=== PATIENT | female | born 1965 | race Caucasian/White ===

== ENCOUNTER → 2016-12-27 | Outpatient (CLI) | payer OTHER ==
[~2016-12-27] MED LIST: DULO20CA PO; GABA-585 PO; LISI-334 PO; METF-620 PO
--- NOTE | 2016-12-27 10:55 | KCIC ---
MR of the left knee Indication: Medial and lateral pain for one year. Technique: The standard multiplanar sequences are obtained. Findings: Mild/moderate motion degradation. Medial meniscus: Degenerative tear at the posterior horn. Lateral meniscus: Intact. Anterior cruciate ligament: Intact Posterior cruciate ligament: Intact Medial collateral ligament: Intact. Iliotibial band: Intact. Posterolateral structures: Fibular collateral ligament, biceps tendon and popliteus tendon are intact. Extensor mechanism: Intact. Fluid: Moderate joint effusion. Articular cartilage -patellofemoral joint: Mild to moderate chondromalacia of the patella. -medial compartment: Severe chondromalacia. -lateral compartment: Mild to moderate chondromalacia, greatest at the posterior lateral tibial plateau. Bones: No significant lesion or acute fracture. Soft tissue: Small Chaidez's cyst. Impression: 1. Medial meniscal tear. 2. Primary osteoarthritis. Electronically signed by: Missael Sims MD (12/27/2016 10:52 AM) [facility]
== END | disposition home or self-care (01) ==
LOC: KCIC MRI 07:42
PROVIDERS: ATTEND Orthopaedic Surgery
DX: S83.242A Other tear of medial meniscus, current injury, left knee, initial encounter (principal); M22.42 Chondromalacia patellae, left knee; M17.12 Unilateral primary osteoarthritis, left knee; X58.XXXA Exposure to other specified factors, initial encounter; Y93.89 Activity, other specified; Y92.89 Other specified places as the place of occurrence of the external cause; Y99.8 Other external cause status
CPT/HCPCS: 73721

== ENCOUNTER 2017-01-28 14:55 | Emergency (ER) | payer OTHER ==
[~2017-01-28] VITALS: Ht 162.6 cm; Wt 104.3 kg
[2017-01-28 16:01] VITALS: BP 163/92
[2017-01-28] MEDS ORDERED: KETOROLAC 60 MG/2 ML INJ. IM ONE (16:30)
--- NOTE | 2017-01-28 16:42 | PHYS DOC ---
Past Medical History Past Medical History: Arthritis, Diabetes-Type II, Hypertension Past Surgical History: Cholecystectomy, Knee Replacement, Other Additional Past Surgical Histo: LEFT KNEE ARTHROSCOPY 01/28 Alcohol Use: None Drug Use: None Adult General Chief Complaint Chief Complaint: LOWER BACK PAIN OR INJURY [facility] HPI Patient is a 52 year old female with history of arthritis, hypertension, diabetes type 2, who presents today complaining of moderate left low back pain radiating to the left lower extremity that began 5 days ago. Patient states she also had left knee arthroscopy 5 days ago. Patient denies any trauma. Denies any loss of bowel bladder function, denies any generalized weakness. She states she has been taking cyclobenzaprine and hydrocodone with no relief. She is interested in getting MRI of her lumbar spine, she states the last time they did an MRI of her lumbar spine she was noted to have a cyst on her right low back. She is also interested in admission for pain management. Review of Systems Review of Systems Constitutional: Denies fever or chills [] Eyes: Denies change in visual acuity, redness, or eye pain [] HENT: Denies nasal congestion or sore throat [] Respiratory: Denies cough or shortness of breath [] Cardiovascular: No additional information not addressed in HPI [] GI: Denies abdominal pain, nausea, vomiting, bloody stools or diarrhea [] : Denies dysuria or hematuria [] Musculoskeletal: Left low back pain radiating into the left lower extremity. Integument: Denies rash or skin lesions [] Neurologic: Denies headache, focal weakness or sensory changes [] All other systems were reviewed and found to be within normal limits, except as documented in this note. Current Medications Current Medications Current Medications Medications (Trade) Dose Ordered Sig/[facility] Start Time Stop Time Status Last Admin Dose Admin Ketorolac Tromethamine (Toradol Im) 60 mg 1X ONCE 01/28/17 16:30 01/28/17 16:32 DC 01/28/17 16:57 60 MG Allergies Allergies Allergies Coded Allergies Type Severity Reaction Last Updated Verified No Known Drug Allergies 05/04/14 No Physical Exam Physical Exam Constitutional: Well developed, well nourished, no acute distress, non-toxic appearance. [] HENT: Normocephalic, atraumatic, bilateral external ears normal, oropharynx moist, no oral exudates, nose normal. [] Eyes: PERRLA, EOMI, conjunctiva normal, no discharge. [] Neck: Normal range of motion, no tenderness, supple, no stridor. [] Cardiovascular:Heart rate regular rhythm, no murmur [] Lungs & Thorax: Bilateral breath sounds clear to auscultation [] Abdomen: Bowel sounds normal, soft, no tenderness, no masses, no pulsatile masses. [] Skin: Warm, dry, no erythema, no rash. [] Back: Mild tenderness to the left SI joint, no midline lumbar spine tenderness, no CVA tenderness. [] Extremities: No tenderness, no cyanosis, no clubbing, ROM intact, no edema. [] Neurologic: Alert and oriented X 3, normal motor function, normal sensory function, no focal deficits noted. [] Psychologic: Affect normal, judgement normal, mood normal. [] Current Patient Data Vital Signs Vital Signs Date Time Temp Pulse Resp B/P (MAP) Pulse Ox O2 Delivery O2 Flow Rate FiO2 01/28/17 16:01 98.0 90 18 99 Room Air 98.0 EKG EKG [] Radiology/Procedures Radiology/Procedures [] Course & Med Decision Making Course & Med Decision Making Pertinent Labs and Imaging studies reviewed. (See chart for details) Patient is in the ED with left low back pain radiating to the left lower extremity with no known injury, cauda equina syndrome symptoms. She had left knee arthroscopy five days ago. She is interested in admission as well as MRI of the lumbar spine. Informed patient there is no indication for her to have an MRI in the ED today. Recommended following up with the PCP as an outpatient MRI. Recommended pain management in the ED. Patient continues to request admission 16:[address] Isabela Orr environmental inspector for patient's PCP Dr. Georges. She requested we discharge patient and she can follow-up with the clinic tomorrow. Patient was given Toradol in the ED. Lumbar spine x-rays interpreted by Dr. Gandhi were noted for vertebral compression fracture of unknown etiology otherwise no acute findings. She was discharged with instructions to contact Dr. Kadie georges tomorrow morning and set up a follow-up appointment. She is provided return precautions and discharged in stable condition. Dragon Disclaimer Dragon Disclaimer This electronic medical record was generated, in whole or in part, using a voice recognition dictation system. Departure Departure Impression: Primary Impression: Low back pain Additional Impression: Sciatica of left side Disposition: HOME, SELF-CARE Condition: STABLE Referrals: KADIE LAKE MD (PCP) follow up by calling her office tomorrow Patient Instructions: Back Pain, Adult, Sciatica with Rehab-SportsMed Additional Instructions: You were seen for low back pain with sciatica. We highly recommend you contact Dr. Georges tomorrow morning and set up a follow-up appointment. Take the prescribed medications as ordered. Do not drive on the [place] or Valium. Scripts Diclofenac Sodium (DICLOFENAC SODIUM) 50 Mg Tablet. 1 TAB PO BID, #20 TAB 0 Refills Prov: DEMARCUS JENKINS APRN 01/28/17 Diazepam (VALIUM) 5 Mg Tablet 5 MG PO TID, #15 TAB Prov: DEMARCUS JENKINS APRN 01/28/17 Hydrocodone Bit/Acetaminophen (HYDROCODONE-APAP 7.5-325 ) 1 Each Tablet 1-2 TAB PO PRN Q6HRS Y for PAIN, #14 TAB 0 Refills Prov: DEMARCUS JENKINS APRN 01/28/17 Problem Qualifiers Primary Impression: Low back pain Chronicity: acute Back pain laterality: left Sciatica presence: with sciatica Sciatica laterality: sciatica of left side Qualified Codes: M54.42 - Lumbago with sciatica, left side DEMARCUS JENKINS APRN Jan 28, 2017 16:42
[2017-01-28] MEDS ORDERED: DIAZ5TAB PO (17:18)
[2017-01-28] MEDS ORDERED: DICL50TA4 PO (17:18)
[2017-01-28] MEDS ORDERED: HYDR-2762 PO (17:18)
--- NOTE | 2017-01-28 17:22 | RAD ---
3 views lumbar spine radiograph 01/28/2017 Clinical indication: Low back pain. Comparison: MRI lumbar spine 01/18/2016. Findings: There is transitional vertebral anatomy with 6 lumbar type vertebral bodies. There is grade 1 anterolisthesis L5 on L6 measuring 7 mm. No evidence of acute lumbar spine fracture. There is mild leftward curvature of the lumbar spine. Vertebral body heights are maintained. There is mild multilevel disc degeneration of the visualized lower thoracic and lumbar spine with mild anterior ossified formation of the lower thoracic and upper lumbar spine. There is mild lower lumbar facet hypertrophy. Impression: 1. No evidence of acute lumbar spine fracture. 2. Transitional vertebral anatomy with grade 1 anterolisthesis L5 on L6. 3. Multilevel mild lumbar spondylosis.
[2017-01-28] MEDS ORDERED: HYDROcodone/APAP 5/325MG 1 TAB TABLET PO ONE (17:45)
== END 2017-01-28 17:39 | disposition home or self-care (01) ==
LOC: ER 14:55
DX: M54.42 Lumbago with sciatica, left side (principal); M19.90 Unspecified osteoarthritis, unspecified site; E11.9 Type 2 diabetes mellitus without complications; I10 Essential (primary) hypertension; Z90.49 Acquired absence of other specified parts of digestive tract; Z96.659 Presence of unspecified artificial knee joint
CPT/HCPCS: 72100; 96372; 99284; J1885

== ENCOUNTER → 2017-06-13 | Outpatient (CLI) | payer OTHER | END | disposition home or self-care (01) | LOC: KCIC MRI 08:27 | DX: M43.16 Spondylolisthesis, lumbar region (principal); M51.16 Intervertebral disc disorders with radiculopathy, lumbar region; M48.07 Spinal stenosis, lumbosacral region; D18.09 Hemangioma of other sites; I10 Essential (primary) hypertension; E11.9 Type 2 diabetes mellitus without complications | CPT/HCPCS: 72148 ==

== ENCOUNTER → 2017-07-06 | Outpatient (CLI) | payer OTHER ==
[~2017-07-06] MED LIST changes: -DULO20CA PO; -GABA-585 PO; +IOHEXOL 180 MG/ML 10 ML VIAL.; +LIDOCAINE 1% PF 2 ML VIAL.; -LISI-334 PO; -METF-620 PO; +methylPREDNISolone ACETATE 40 MG/ML VIAL.; +methylPREDNISolone ACETATE 80 MG/ML VIAL.
== END | disposition home or self-care (01) ==
LOC: PNCL 08:18
DX: M51.16 Intervertebral disc disorders with radiculopathy, lumbar region (principal); M48.061 Spinal stenosis, lumbar region without neurogenic claudication; I10 Essential (primary) hypertension; E11.9 Type 2 diabetes mellitus without complications; M19.90 Unspecified osteoarthritis, unspecified site; Z90.49 Acquired absence of other specified parts of digestive tract; Z96.651 Presence of right artificial knee joint; Z79.4 Long term (current) use of insulin; Z79.899 Other long term (current) drug therapy
CPT/HCPCS: 62323; J1030; J1040; Q9965

== ENCOUNTER → 2017-07-26 | Outpatient (CLI) | payer OTHER | END | disposition home or self-care (01) | LOC: PNCL 08:05 | DX: M51.16 Intervertebral disc disorders with radiculopathy, lumbar region (principal); M48.061 Spinal stenosis, lumbar region without neurogenic claudication | CPT/HCPCS: 62323; J1030; J1040; Q9965 ==

== ENCOUNTER → 2017-08-29 | Outpatient (CLI) | payer OTHER | END | disposition home or self-care (01) | LOC: KCIC 08:15 | DX: M43.16 Spondylolisthesis, lumbar region (principal); M47.896 Other spondylosis, lumbar region | CPT/HCPCS: 72100 ==

== ENCOUNTER → 2017-09-17 | Outpatient (CLI) | payer OTHER ==
[2017-09-17 15:46] LABS: ADD MAN DIFF? NO
[2017-09-17 15:50] LABS: BASO # 0.1 x10^3/uL (0.0-0.2); BASO % 1 % (0-3); EOS # 0.1 x10^3/uL (0.0-0.7); EOS % 2 % (0-3); HEMATOCRIT 41.5 % (36.0-47.0); HEMOGLOBIN 13.6 g/dL (12.0-15.5); LYMPH # 2.5 x10^3/uL (1.0-4.8); LYMPH % 30 % (24-48); MEAN CORPUSCULAR HEMOGLOBIN 28 pg (25-35); MEAN CORPUSCULAR HGB CONC 33 g/dL (31-37); MEAN CORPUSCULAR VOLUME 86 fL (79-100); MONO # 0.5 x10^3/uL (0.0-1.1); MONO % 7 % (0-9); NEUT # 4.8 x10^3uL (1.8-7.7); NEUT % 60 % (31-73); PLATELET COUNT 333 x10^3/uL (140-400); RED BLOOD COUNT 4.82 x10^6/uL (3.50-5.40); RED CELL DISTRIBUTION WIDTH 14.4 % (11.5-14.5); WHITE BLOOD COUNT 8.1 x10^3/uL (4.0-11.0)
[2017-09-17 15:57] LABS: PARTIAL THROMBOPLASTIN TIME 25 SEC (24-38); PROTHROMBIN TIME PATIENT 12.5 SEC (11.7-14.0)
[2017-09-17 16:11] LABS: ALBUMIN 3.2 g/dL (3.4-5.0); ALBUMIN/GLOBULIN RATIO 0.8 (1.0-1.7); ALK PHOS 100 U/L (46-116); ALT (SGPT) 28 U/L (14-59); ANION GAP 7 (6-14); AST (SGOT) 23 U/L (15-37); BLOOD UREA NITROGEN 15 mg/dL (7-20); BUN/CREATININE RATIO 14 (6-20); CALCIUM 8.2 mg/dL (8.5-10.1); CARBON DIOXIDE 30 mmol/L (21-32); CHLORIDE 100 mmol/L (98-107); CREATININE 1.1 mg/dL (0.6-1.0); GFR 52.2; GLUCOSE 317 mg/dL (70-99); POTASSIUM 3.9 mmol/L (3.5-5.1); SODIUM 137 mmol/L (136-145); TOTAL BILIRUBIN 0.4 mg/dL (0.2-1.0)
[2017-09-18 00:15] LABS: MRSA BY PCR Negative (Negative)
[2017-09-18 17:15] LABS: HEMOGLOBIN A1C 11.8 % (4.8-5.6)
== END | disposition home or self-care (01) ==
LOC: SURGPAT 12:55
DX: I10 Essential (primary) hypertension (principal); E11.9 Type 2 diabetes mellitus without complications; Z90.49 Acquired absence of other specified parts of digestive tract
CPT/HCPCS: 36415; 80053; 83036; 85025; 85610; 85730; 87641; 93005

== ENCOUNTER → 2018-03-21 | Outpatient (CLI) | payer OTHER ==
[~2018-03-21] MED LIST changes: +ATOR10TA60 PO; +BARIUM SULFATE 340 GM SUSPENSION. PO ONE; +BARIUM SULFATE 60% 355 ML SUSP PO ONE; +DIAZ5TAB PO; +DICL50TA4 PO; +DULO20CA PO; +GABA-585 PO; +GABA300C18 PO; +GABA600T7 PO; +HYDR-2765 PO; +IBUP-1007 PO; +INSU100I13 SQ; -IOHEXOL 180 MG/ML 10 ML VIAL.; -LIDOCAINE 1% PF 2 ML VIAL.; +LISI-334 PO; +METF10007 PO; +PIOG45TA40 PO; +SIMETHICONE/SOD BICARB/CITRIC ACID PACKET. PO ONE; -methylPREDNISolone ACETATE 40 MG/ML VIAL.; -methylPREDNISolone ACETATE 80 MG/ML VIAL.
--- NOTE | 2018-03-21 10:06 | RAD ---
Examination: ESOPHAGRAM/BARIUM SWALLOW History: dysphagia, gagging on liquids and solids, food gets stuck, 11 images, 1.6 minutes fluoro time Comparison/Correlation: None Findings: Air-contrast and single-contrast esophagram exam was performed. Fluoroscopy was utilized for 1.6 minutes. Pharyngeal motility is normal. Subtle mass effect along the posterior aspect of the cervical esophagus at the C4-5 level is present. This is at the level of the screws associated with C5-6 effusion. Intervertebral disc spacer material at this level also seen. Degenerative disc space narrowing of the cervical spine multiple levels seen. Posterior element rods and screws also seen involving the lower cervical spine. Normal distention of the esophagus is present. Occasional mild tertiary contractions at the proximal thoracic esophageal level noted. No suspicious filling defects. No definite diverticulitis. Upon Valsalva drinking views, there is no hiatal hernia identified. No reflux seen. Impression: Subtle mass effect upon the cervical esophagus at the C5-6 level at the level of cervical spine fusion. Findings may relate to presence of hardware at this site. Possibly of cricopharyngeal hypertrophy is not entirely excluded. Electronically signed by: Glen Crockett MD (03/21/2018 10:01 AM) [facility]
== END | disposition home or self-care (01) ==
LOC: RAD 08:30
PROVIDERS: ATTEND Internal Medicine Gastroenterology
DX: R13.10 Dysphagia, unspecified (principal); I10 Essential (primary) hypertension; E11.9 Type 2 diabetes mellitus without complications
CPT/HCPCS: 74220

== ENCOUNTER → 2018-03-27 | Outpatient (CLI) | payer OTHER ==
[~2018-03-27] MED LIST changes: -BARIUM SULFATE 340 GM SUSPENSION. PO ONE; -BARIUM SULFATE 60% 355 ML SUSP PO ONE; -SIMETHICONE/SOD BICARB/CITRIC ACID PACKET. PO ONE
--- NOTE | 2018-03-27 12:29 | KCIC ---
EXAM: Cervical spine MRI without contrast. HISTORY: Degenerative disc disease. Left neck pain. Neck fusion. TECHNIQUE: Multiplanar, multisequence magnetic resonance imaging of the cervical spine was performed without contrast. COMPARISON: None. FINDINGS: There is instrumented anterior spinal fusion at C5-C6 and interbody fusion at C5-C6 and C6-C7. There is instrumented posterior spinal fusion at C5-C7. There is kyphosis centered at the fused levels. There is minimal anterolisthesis of C7 on T1. There is degenerative endplate remodeling and osteophytosis at the majority of the cervical an upper thoracic levels. There are few small endplate Schmorl's nodes. There is deformation of the cervical spinal cord at multiple levels. There is a tiny focus of T2 hyperintensity within the left aspect of the cervical spinal cord at the inferior aspect of C6, likely due to myelomalacia. There is a minimally prominent central canal at C7-T1. No significant syringohydromyelia is seen. The posterior fossa is unremarkable. At C2-C3, there is a disc bulge and endplate remodeling. There is mild bilateral facet arthropathy. There is no stenosis. At C3-C4, there is a disc bulge and endplate remodeling. There is moderate right and mild left facet arthropathy. There is minimal central canal stenosis. At C4-C5, there is a posterior central to left paracentral disc protrusion and annular tear superimposed on a disc bulge and endplate osteophytosis. There is moderate facet arthropathy. There is uncovertebral arthropathy. There is mild left foraminal stenosis. There is deformation of the spinal cord and moderate central canal stenosis measuring 7.6 mm in anterior posterior dimension. At C5-C6, there is instrumented fusion. There is a prominent posterior central bridging osteophyte superimposed on endplate remodeling. There is uncovertebral therapy. There is mild/moderate left foraminal stenosis. There is deformation of the ventral aspect of the spinal cord. There is laminectomy decompression of the thecal sac. There is a 4 mm focus of T2 hyperintensity within the left aspect of the cervical spinal cord at this level likely due to myelomalacia. This is only seen on axial images. At C6-C7, there is a disc bulge and endplate remodeling. There is nonspecific fluid within the disc space. There is mild facet arthropathy. There is uncovertebral therapy. There is no stenosis. There are disc bulges and protrusions at the upper thoracic vertebral levels. The combination of this finding and facet arthropathy contributes to mild bilateral foraminal stenosis at multiple levels. IMPRESSION: 1. Multilevel degenerative change throughout the cervical an upper thoracic spine, described in detail above. This results in stenosis as before mentioned levels. 2. Tiny focus of T2 hyperintensity within the left aspect of the cervical spinal cord at C6, likely due to myelomalacia. There is also a minimally prominent central canal at C7, without convincing syringohydromyelia. 3. Instrumented anterior spinal fusion at C5-C6 and posterior fusion at C5-C7. There is laminectomy decompression of the thecal sac at the fused levels. 4. Cervical kyphosis and slight listhesis, described above. Electronically signed by: Mayela Ballesteros MD (03/27/2018 12:26 PM) [id number]
== END | disposition home or self-care (01) ==
LOC: KCIC MRI 09:30
PROVIDERS: ATTEND Family Medicine
DX: M47.892 Other spondylosis, cervical region (principal); M47.894 Other spondylosis, thoracic region; M48.02 Spinal stenosis, cervical region; M40.292 Other kyphosis, cervical region; M43.12 Spondylolisthesis, cervical region; M43.22 Fusion of spine, cervical region; M12.88 Other specific arthropathies, not elsewhere classified, other specified site; M25.78 Osteophyte, vertebrae
CPT/HCPCS: 72141

== ENCOUNTER → 2019-10-01 | Outpatient (CLI) | payer MEDICARE, OTHER ==
[~2019-10-01] MED LIST changes: +CONTRAST GIVEN. MC PRN; +IOHEXOL 240 MG/ML 50ML VIAL. PO ONE; +IOHEXOL 300 MG/ML 100ML VIAL. IV ONE
--- NOTE | 2019-10-01 16:58 | KCIC ---
Bilateral digital screening mammograms: Reason for examination: Routine screening. Comparison is made to previous study dated 05/04/2014. Interpretation is made with the benefit of CAD. The skin and nipples show no abnormalities. No abnormal lymph nodes are seen. The breast parenchyma is predominantly fatty. (Breast density: Category A.) There are no dominant masses, suspicious calcifications or architectural distortions. Impression: No evidence of malignancy. Recommend routine screening. BI-RADS Category 1: Negative. "Our facility is accredited by the [employer] Mammography Program." This patient's information has been entered into a reminder system for the patient to be notified with the results of her examination and a target date for the next mammogram. Electronically signed by: Karyn Moreira MD (10/01/2019 4:53 PM) [id number]
--- NOTE | 2019-10-02 10:38 | KCIC ---
EXAM: CT ABDOMEN/PELVIS WITH CONTRAST. HISTORY: Right lower quadrant pain. TECHNIQUE: Computed tomography of the abdomen and pelvis was performed after the intravenous administration of iodinated contrast. One or more of the following individualized dose reduction techniques were utilized for this examination: 1. Automated exposure control. 2. Adjustment of the mA and/or kV according to patient size. 3. Use of iterative reconstruction technique. COMPARISON: None. FINDINGS: Lung windows through the visualized portions of the bases reveal mild atelectasis. Bone windows reveal no suspicious lesions. There is grade 1 anterolisthesis at L4-5. There is moderate to severe central canal stenosis at this level. The gallbladder is surgically absent. At least mild diffuse hepatic steatosis is suspected. There are calcified granulomas in the spleen. The pancreas, adrenal glands and kidneys are unremarkable. There are no renal or ureteral calculi. Sigmoid diverticulosis is mild. The appendix is not inflamed. There is no small bowel obstruction. There are changes of pelvic floor relaxation with a small cystocele. IMPRESSION: 1. Normal appendix. No acute intra-abdominal findings. 2. Pelvic floor relaxation with a small cystocele. 3. Suspect mild diffuse hepatic steatosis. Electronically signed by: Arturo Tavares MD (10/02/2019 10:35 AM) [id number]
== END | disposition home or self-care (01) ==
LOC: KCIC MAMMO 13:11
PROVIDERS: ATTEND Family Medicine
DX: Z12.31 Encounter for screening mammogram for malignant neoplasm of breast (principal); J98.11 Atelectasis; M48.061 Spinal stenosis, lumbar region without neurogenic claudication; M43.16 Spondylolisthesis, lumbar region; K57.30 Diverticulosis of large intestine without perforation or abscess without bleeding; K76.0 Fatty (change of) liver, not elsewhere classified; Z90.49 Acquired absence of other specified parts of digestive tract
CPT/HCPCS: 74177; 77067; 82565; Q9966; Q9967

== ENCOUNTER → 2020-05-03 | Outpatient (CLI) | payer MEDICARE ==
[~2020-05-03] MED LIST changes: -CONTRAST GIVEN. MC PRN; -IOHEXOL 240 MG/ML 50ML VIAL. PO ONE; -IOHEXOL 300 MG/ML 100ML VIAL. IV ONE; -LISI-334 PO; +LISI20TA18 PO
--- NOTE | 2020-05-03 18:10 | KCIC ---
MRI study of the left shoulder without contrast Clinical indications: Left shoulder pain. Patient fell 3 weeks ago. Limited range of motion. TECHNIQUE: Noncontrast MRI sequences of the left shoulder were performed in all 3 planes. FINDINGS: Patient motion artifact is seen. There is paramagnetic susceptibility artifact of the proxi mal right humerus with surgical tracks consistent with previous surgery. There is a complete tear of the medial and lateral aspects of the supraspinatus tendon of the rotator cuff. There is a tear at th e insertion onto the greater tubercle as well. Subscapularis tendon appears intact. The intra-articul ar portion of the tendon of the long head of the biceps is not visualized. It appears intact within t he bicipital groove. No muscle atrophy is seen. There is moderate degenerative osteoarthritis of the AC joint. A type III acromial process is seen. These findings may impinge the acromial humeral space. There are chronic erosive changes of the lateral aspect of the humeral head secondary to chronic imp ingement. Small amount of fluid is seen within the subacromial bursa as a result of the complete tear . No marrow infiltrative process or fracture is seen. There is moderate degenerative osteoarthritis o f the glenohumeral joint with a small glenohumeral joint effusion. No loose body is evident. There is increased signal and irregularity of the posterior superior aspect of the glenoid labrum which may r epresent a degenerative tear. IMPRESSION: Complete tear of the supraspinatus tendon portion of the rotator cuff. Impingement of the acromial humeral space. Primary degenerative osteoarthritis of the right AC joint and glenohumeral joint. Degenerative tear of the posterior superior aspect of the glenoid labrum. Electronically signed by: Cristino Vu MD (05/03/2020 6:07 PM) [place] [id number]
== END ==
LOC: KCIC MRI 12:31
PROVIDERS: ATTEND Family Medicine
DX: M75.102 Unspecified rotator cuff tear or rupture of left shoulder, not specified as traumatic (principal); M19.011 Primary osteoarthritis, right shoulder
CPT/HCPCS: 73221